=== PATIENT | male | born 1950 | race Caucasian/White ===

== ENCOUNTER 2017-05-17 12:02 | Outpatient (CLI) | payer MEDICARE | END 2017-05-17 12:03 | disposition home or self-care (01) | LOC: BICMAMMO 12:02 | PROVIDERS: ATTEND Specialist | DX: Z13.820 Encounter for screening for osteoporosis (principal); M25.559 Pain in unspecified hip; M85.80 Other specified disorders of bone density and structure, unspecified site; M81.0 Age-related osteoporosis without current pathological fracture | CPT/HCPCS: 77080 ==

== ENCOUNTER 2018-06-14 09:06 | Outpatient (CLI) | payer MEDICARE ==
--- NOTE | 2018-06-14 13:04 | ULT ---
PREDIALYSIS ACCESS DUPLEX EXAM: INDICATION: Dialysis access planning. TECHNIQUE: Right brachial artery 4.0 mm Right radial artery 2.2 mm Right ulnar artery 2.3 mm RIGHT CEPHALIC VEIN: Proximal humerus 3.3 mm Mid humerus 3.6 mm Distal 3.2 mm Elbow 3.5 mm Proximal forearm 1.9 mm Mid 2.4 mm Distal 2.1 mm RIGHT BASILIC VEIN: Proximal humerus 5.1 mm Mid humerus 3.7 mm Distal 3.7 mm Elbow 2.3 mm Proximal forearm 2.1 mm Mid 2.5 mm Distal 1.6 mm Left brachial artery 5.4 mm Left radial artery 2.3 mm Left ulnar artery 2.8 mm LEFT CEPHALIC VEIN: Proximal humerus 3.3 mm Mid humerus 2.1 mm Distal 2.5 mm Elbow 3.0 mm Proximal forearm 1.9 mm Mid 1.7 mm Distal 2.2 mm LEFT BASILIC VEIN (from upper arm through the wrist) Proximal humerus 3.6 mm Mid humerus 2.9 mm Distal 3.9 mm Elbow 3.3 mm Proximal forearm 2.1 mm Mid 1.3 mm Distal 1.1 mm IMPRESSION: Predialysis duplex exam as above. POS: [facility]
== END 2018-06-14 09:07 | disposition home or self-care (01) ==
LOC: ULT 09:06
PROVIDERS: ATTEND Internal Medicine Nephrology
DX: N18.5 Chronic kidney disease, stage 5 (principal)
CPT/HCPCS: 93970; G0365

== ENCOUNTER 2018-07-20 07:07 | Day surgery (SDC) | payer MEDICARE ==
[2018-07-19 09:03] VITALS: BMI 32.1
[2018-07-20] MEDS ORDERED: Midazolam HCl 2 mg/2 ml Vial ONE (07:51)
[2018-07-20] MEDS ORDERED: Fentanyl 100 MCG/2 ML VIAL ONE ×2 (07:51→08:20)
[2018-07-20 07:53] LABS: #Eosinphils 0.5 thou/uL (0.0-0.7); #Lymphocytes 1.9 thou/uL (1.20-3.40); #Monocytes 1.1 thou/uL (0.11-0.59); #Neutrophils 5.8 thou/uL (1.40-6.50); %Basophils 0.5 % (0.0-1.0); %Lymphocytes 20.3 % (21.0-51.0); %Monocytes 11.7 % (0.0-10.0); %Neutrophils 62.5 % (42.0-75.0); Mean Corpuscular HGB CONC 32.8 g/dL (32.0-36.0); Mean Corpuscular Hemoglobin 30.9 pg (27.0-31.0); Mean Corpuscular Volume 94.2 fL (78.0-98.0); Mean Platelet Volume 9.1 fL (7.4-10.4); Platelet Count 135 thou/uL (130-400); RBC Distribution Width 11.7 % (11.5-14.5); Red Blood Cell (RBC) Count 3.87 mill/uL (4.70-6.10); White Blood Cell (WBC) Count 9.3 thou/uL (4.8-10.8)
[2018-07-20 08:13] LABS: Anion Gap 15 mmol/L (10-20); BUN (Urea Nitrogen) 53 mg/dL (8.4-25.7); Calc. Creatinine Clearance 26 mL/min (70-130); Calcium 9.8 mg/dL (7.8-10.44); Carbon Dioxide 22 mmol/L (23-31); Chloride 107 mmol/L (98-107); Estimated GFR-MDRD 14; Glucose 134 mg/dL (80-115); Potassium 4.5 mmol/L (3.5-5.1); Sodium 139 mmol/L (136-145)
[2018-07-20] MEDS ORDERED: Bupivacaine/Epinephrine 0.25% 30 ML VIAL ONE (08:14)
[2018-07-20] MEDS ORDERED: Heparin 5,000 UNITS/ML VIAL ONE (08:14)
[2018-07-20] MEDS ORDERED: Lidocaine 2% PF 5 ML VIAL ONE (08:14)
[2018-07-20] MEDS ORDERED: Protamine Sulfate 50 MG/5 ML VIAL ONE (08:14)
[2018-07-20] MEDS ORDERED: Propofol 1,000 MG/100 ML VIAL IV ONE (08:20)
[2018-07-20] MEDS ORDERED: Bupivacaine HCl 0.5%/Epinephrine 1:200,000/PF 30 ml Vial ONE (13:58)
[2018-07-20] MEDS ORDERED: Heparin 10,000 UNITS/ 10 ML VIAL ONE (14:21)
[2018-07-20] MEDS ORDERED: PROPOFOL 200 MG/20 ML VIAL ONE (14:21)
--- NOTE | 2018-07-20 15:02 | EKG ---
Test Reason : PREOP Blood Pressure : / mmHG Vent. Rate : 047 BPM Atrial Rate : 047 BPM P-R Int : 160 ms QRS Dur : 134 ms QT Int : 500 ms P-R-T Axes : 023 -43 -10 degrees QTc Int : 442 ms Marked sinus bradycardia Left axis deviation Right bundle branch block Abnormal ECG Confirmed by EMILY BOYD ([id number]) on 07/20/2018 3:02:34 PM Referred By: HYUN Confirmed By:EMILY BOYD
--- NOTE | 2018-07-23 11:23 | OP ---
DATE OF PROCEDURE: 07/20/2018 PROCEDURE: Left [place] arteriovenous fistula creation. PREOPERATIVE DIAGNOSIS: End-stage renal failure. POSTOPERATIVE DIAGNOSIS: End-stage renal failure. HISTORY: Mr. Ro is a 67-year-old man, who requires AV fistula creation for dialysis. Recommendation was made to proceed with left-sided AV fistula creation. FINDINGS: A 3.5-mm cephalic vein at the wrist used for primary fistula creation. PROCEDURE: After informed consent was obtained and appropriate preoperative antibiotics administered, the patient was taken to the operating room and placed in the supine position and monitored anesthesia care was administered. A preoperative block had been performed by Anesthesia and the adequacy of block was confirmed. The arm was prepped and draped in a standard sterile fashion and an incision made between the palpable cephalic vein and radial artery. Dissection was carried out to the cephalic vein, which appeared to be of adequate quality and caliber to support a fistula. This was dissected free circumferentially, ligated, and divided distally, and spatulated with Serrato scissors. This was serially interrogated with cardiac dilators and easily accepted up to a 3.5 mm cardiac dilator. This was flushed with heparinized saline and clamped with a bulldog clamp. The radial artery was then dissected free and found to be of adequate quality and caliber to support a fistula. Heparin was administered systemically and allowed to circulate for 3 minutes following which the radial artery was clamped proximally and distally. An anterior arteriotomy was created with an 11 blade scalpel and extended with Serrato scissors. An end-to-side anastomosis created with a running 6-0 Prolene suture with excellent technical result. Prior to tying down the anastomosis, the inflow was released to flush the anastomosis. Flow was established first through the fistula and then through the distal radial artery. Hemostasis at the site was confirmed, and an excellent thrill was felt in the cephalic vein outflow and an excellent bruit was heard with Doppler as well up to the proximal forearm. Hemostasis at the operative site was again confirmed. The incision was closed with a running 3-0 subcutaneous and running 4-0 subcuticular Monocryl sutures. Dermabond dressings were placed and the patient was taken to the recovery room in good condition. Estimated blood loss was minimal. There were no complications. There were no specimens. Job ID: [id number]
== END 2018-07-20 11:40 | disposition home or self-care (01) ==
LOC: SDC 07:07
PROVIDERS: ATTEND Surgery
PROC: 031C0ZF Bypass Left Radial Artery to Lower Arm Vein, Open Approach (ICD-10-PCS; principal; 2018-07-20)
DX: I12.0 Hypertensive chronic kidney disease with stage 5 chronic kidney disease or end stage renal disease (principal); E11.22 Type 2 diabetes mellitus with diabetic chronic kidney disease; N18.6 End stage renal disease; E78.00 Pure hypercholesterolemia, unspecified; Z87.891 Personal history of nicotine dependence; Z79.899 Other long term (current) drug therapy
CPT/HCPCS: 36415; 80048; 85025; 93005; 93010; J0670; J1644; J2001; J2250; J2704; J2720; J3010

== ENCOUNTER 2019-03-28 15:40 | Emergency (ER) | payer MEDICARE ==
[2019-03-28 16:35] LABS: #Basophils 0.1 thou/uL (0.0-0.2); #Eosinphils 0.6 thou/uL (0.0-0.7); #Lymphocytes 2.5 thou/uL (1.20-3.40); #Monocytes 1.5 thou/uL (0.11-0.59); #Neutrophils 6.2 thou/uL (1.40-6.50); %Basophils 0.6 % (0.0-1.0); %Lymphocytes 22.7 % (21.0-51.0); %Monocytes 13.4 % (0.0-10.0); %Neutrophils 57.3 % (42.0-75.0); Hemoglobin 11.5 g/dL (14.0-18.0); Mean Corpuscular HGB CONC 33.1 g/dL (32.0-36.0); Mean Corpuscular Hemoglobin 31.5 pg (27.0-31.0); Mean Corpuscular Volume 95.1 fL (78.0-98.0); Mean Platelet Volume 9.1 fL (7.4-10.4); Platelet Count 183 thou/uL (130-400); Red Blood Cell (RBC) Count 3.66 mill/uL (4.70-6.10); White Blood Cell (WBC) Count 10.9 thou/uL (4.8-10.8)
[2019-03-28 16:53] LABS: Bilirubin Negative (Negative); Blood, Urine Negative (Negative); Clarity Clear (Clear); Glucose, Urine (Dipstick) Normal (Negative); Leukocyte Negative Leu/uL (Negative); Nitrite Negative (Negative); Protein, Urine (Dipstick) 70 mg/dL (Neg-Trace); Urobilinogen Normal mg/dL (Less than 2)
[2019-03-28 16:54] LABS: Bacteria/HPF None Seen HPF (None Seen); RBC/HPF 0-3 HPF (0-3); Squamous Epithelial 0-3 HPF (0-3); WBC/HPF 0-3 HPF (0-3)
[2019-03-28 16:56] LABS: ALT (SGPT) 8 U/L (8-55); AST (SGOT) 10 U/L (5-34); Albumin 4.2 g/dL (3.4-4.8); Alkaline Phosphatase 48 U/L (40-110); Anion Gap 14 mmol/L (10-20); BUN (Urea Nitrogen) 79 mg/dL (8.4-25.7); Bilirubin, Total 0.4 mg/dL (0.2-1.2); Calc. Creatinine Clearance 0 mL/min (70-130); Calcium 9.7 mg/dL (7.8-10.44); Carbon Dioxide 24 mmol/L (23-31); Chloride 107 mmol/L (98-107); Estimated GFR-MDRD 8; Globulin 3.8 g/dL (2.4-3.5); Glucose 78 mg/dL (80-115); Potassium 4.8 mmol/L (3.5-5.1); Sodium 140 mmol/L (136-145)
[2019-03-28] MEDS ORDERED: Ondansetron PF 4 MG/2 ML Vial ONE (17:26)
[2019-03-28] MEDS ORDERED: Morphine 4 MG/ML VIAL ONE (17:26)
--- NOTE | 2019-03-28 18:06 | CT ---
CT abdomen and pelvis, noncontrast CLINICAL HISTORY: Flank pain No prior comparison FINDINGS: There are scattered volume loss of the lung bases. Prominent left extrarenal pelvis is pres ent. No discrete urinary tract calculi. Cystic-appearing hypodensity is seen at the superior aspect of the right kidney which could relate to a parapelvic cyst or dilated calyx. There is a small parenc hymal hyperdensity of the posterior aspect of the left kidney, too small to further characterize. Prostate calcifications are present. There is scattered atherosclerotic vascular disease and ectasia of the abdominal aorta with mild aneurysmal dilatation of the infrarenal abdominal aorta, 3.5 cm in diameter. There are scattered osseous degenerative changes. Evaluation is otherwise limited on the ba sis of noncontrast technique. IMPRESSION: No urolithiasis or obstructive uropathy. Additional details are described above. Transcribed Date/Time: 03/28/2019 6:18 PM
== END 2019-03-28 19:16 | disposition home or self-care (01) ==
LOC: ERS 15:40
DX: M54.5 Low back pain (principal); E10.9 Type 1 diabetes mellitus without complications; K21.9 Gastro-esophageal reflux disease without esophagitis; E78.5 Hyperlipidemia, unspecified; I10 Essential (primary) hypertension; J44.9 Chronic obstructive pulmonary disease, unspecified; Z79.899 Other long term (current) drug therapy; Z79.84 Long term (current) use of oral hypoglycemic drugs
CPT/HCPCS: 36415; 74176; 80053; 81003; 81015; 83690; 84484; 85025; 93005; 96361; 96374; 96375; J2270; J2405

== ENCOUNTER 2019-06-06 14:00 | Outpatient (CLI) | payer MEDICARE ==
--- NOTE | 2019-06-06 15:11 | RAD ---
TWO VIEWS OF THE CHEST: COMPARISON: 11/13/2015. HISTORY: Chronic kidney disease. FINDINGS: Two views of the chest show a normal-size cardiomediastinal silhouette. There is no evidence of cons olidation, mass, or pleural effusion. The bones are unremarkable. IMPRESSION: No evidence of acute cardiopulmonary disease. POS: CET
== END 2019-06-06 14:01 | disposition home or self-care (01) ==
LOC: BICRAD 14:00
PROVIDERS: ATTEND Internal Medicine Nephrology
DX: N18.5 Chronic kidney disease, stage 5 (principal)
CPT/HCPCS: 71046

== ENCOUNTER 2019-06-20 11:02 | Day surgery (SDC) | payer MEDICARE ==
[2019-06-19 17:58] VITALS: BMI 37.8
[~2019-06-20 11:02] MED LIST: PROPOFOL 200 MG/20 ML VIAL ONE
[2019-06-20 12:26] LABS: #Basophils 0.1 thou/uL (0.0-0.2); #Eosinphils 0.6 thou/uL (0.0-0.7); #Monocytes 1.5 thou/uL (0.11-0.59); #Neutrophils 8.1 thou/uL (1.40-6.50); %Basophils 0.5 % (0.0-1.0); %Eosinophils 4.8 % (0.0-10.0); %Lymphocytes 16.5 % (21.0-51.0); %Neutrophils 66.3 % (42.0-75.0); Hemoglobin 9.8 g/dL (14.0-18.0); Mean Corpuscular HGB CONC 32.3 g/dL (32.0-36.0); Mean Corpuscular Hemoglobin 31.2 pg (27.0-31.0); Mean Corpuscular Volume 96.6 fL (78.0-98.0); Mean Platelet Volume 9.5 fL (7.4-10.4); Platelet Count 168 thou/uL (130-400); Red Blood Cell (RBC) Count 3.13 mill/uL (4.70-6.10); White Blood Cell (WBC) Count 12.3 thou/uL (4.8-10.8)
[2019-06-20 12:48] LABS: Anion Gap 13 mmol/L (10-20); BUN (Urea Nitrogen) 64 mg/dL (8.4-25.7); Calc. Creatinine Clearance 19 mL/min (70-130); Calcium 9.3 mg/dL (7.8-10.44); Carbon Dioxide 23 mmol/L (23-31); Chloride 107 mmol/L (98-107); Estimated GFR-MDRD 9; Glucose 93 mg/dL (80-115); Potassium 5.4 mmol/L (3.5-5.1); Sodium 138 mmol/L (136-145)
[2019-06-20] MEDS ORDERED: Sodium Chloride 0.9% 20 ML ONE (12:56)
[2019-06-20] MEDS ORDERED: Lidocaine 2% w/Epinephrine 1:200K 20 ML VIAL ONE (12:56)
[2019-06-20] MEDS ORDERED: Heparin 10,000 UNITS/1 ML VIAL ONE (12:56)
[2019-06-20] MEDS ORDERED: Bupivacaine 0.25% HCL 30 ML VIAL ONE (12:56)
[2019-06-20] MEDS ORDERED: Midazolam HCl 2 mg/2 ml Vial ONE (13:15)
[2019-06-20] MEDS ORDERED: Meperidine HCl/PF 25 MG/ML VIAL ONE (13:15)
[2019-06-20] MEDS ORDERED: PROPOFOL 20 ML ONE (13:16)
--- NOTE | 2019-06-20 15:44 | RAD ---
SINGLE VIEW OF THE CHEST: 06/20/19 COMPARISON: 06/06/19. HISTORY: Dialysis catheter placement. FINDINGS: Single view of the chest shows a cardiomediastinal silhouette which is upper limits of normal in size . There is a right IJ dialysis catheter with its tip in the superior vena cava. No pneumothorax is se en. There is no evidence of consolidation, mass or pleural effusion. IMPRESSION: No evidence of acute cardiopulmonary disease. POS: CET
--- NOTE | 2019-06-20 16:08 | PDOC.OP ---
Operative Note - Operative Note Operative Note: DATE OF PROCEDURE: 06/20/2019 PROCEDURE: Placement of tunneled hemodialysis catheter. SURGEON: Cherelle Avilez M.D. PREOPERATIVE DIAGNOSIS: End-stage renal failure. POSTOPERATIVE DIAGNOSIS: End-stage renal failure. HISTORY: Patient with end-stage renal failure who is fistula has infiltrated several times. A tunneled hemodialysis catheter for initiation of dialysis has been requested by the patients social media assistant. PROCEDURE: After informed consent was obtained and appropriate preoperative antibiotics were administered, the patient was taken to the Operating Room, placed in the supine position and monitored anesthesia care was administered. The neck and chest were prepped and draped in a standard sterile fashion and the patient placed in Trendelenburg position. A sterile ultrasound probe was used to identify the patent compressible right IJ vein which was accessed under direct ultrasound guidance. A wire was threaded through the needle and confirmed by ultrasound to be within the patent compressible vessel with the tip in the vena cava by fluoroscopy. Local anesthesia was infused to the skin and subcutaneous tissues of the right neck and chest. An infraclavicular incision was made and a catheter tunneled from the infraclavicular to the right IJ access site. The right IJ was sequentially dilated over the wire following which a dilator and sheath were placed over the wire and the dilator and wire removed leaving the sheath in place. The catheter was tunneled through the sheath which was then split and removed leaving the catheter in place. This was confirmed by fluoroscopy to be in good position in the superior vena cava with no kinking of the course of the catheter. Both ports easily aspirated dark venous nonpulsatile blood and easily flushed without resistance. Heparin was instilled to the quantity specified on the hub, and the hub was secured to the skin with 3-0 nylon sutures. The skin incision at the neck was closed in two layers with 4-0 Monocryl suture and Dermabond dressings were placed. The skin at the exit site was snugged up around the catheter with 4-0 Monocryl suture and Dermabond was placed there as well. Once the Dermabond was dry, a Biopatch and Tegaderm dressing was placed at the exit site. The patient was taken to Recovery in good condition. Estimated blood loss was minimal. There were no complications. There were no specimens.
== END 2019-06-20 15:50 | disposition home or self-care (01) ==
LOC: SDC 11:02
PROVIDERS: ATTEND Surgery
PROC: 0JH63XZ Insertion of Tunneled Vascular Access Device into Chest Subcutaneous Tissue and Fascia, Percutaneous Approach (ICD-10-PCS; principal; 2019-06-20)
PROC: 02HV33Z Insertion of Infusion Device into Superior Vena Cava, Percutaneous Approach (ICD-10-PCS; 2019-06-20)
PROC: B548ZZA Ultrasonography of Superior Vena Cava, Guidance (ICD-10-PCS; 2019-06-20)
PROC: B518ZZA Fluoroscopy of Superior Vena Cava, Guidance (ICD-10-PCS; 2019-06-20)
DX: I12.0 Hypertensive chronic kidney disease with stage 5 chronic kidney disease or end stage renal disease (principal); N18.6 End stage renal disease; E11.22 Type 2 diabetes mellitus with diabetic chronic kidney disease; E78.00 Pure hypercholesterolemia, unspecified; Z79.84 Long term (current) use of oral hypoglycemic drugs; Z79.899 Other long term (current) drug therapy; Z99.2 Dependence on renal dialysis
CPT/HCPCS: 36561; 71045; 80048; 85025; C1752; C1769; J0690; J1644; J2175; J2250; J2704; S0020

== ENCOUNTER 2023-03-14 05:56 | Day surgery (SDC) | payer OTHER ==
[2023-03-13 15:09] VITALS: BMI 38.0
[~2023-03-14 05:56] MED LIST changes: +EPINEPHrine 0.3 MG in Ophthalmic Irrigation Solution 500 ML IRR SCH; -PROPOFOL 200 MG/20 ML VIAL ONE
[2023-03-14] MEDS ORDERED: Cyclopentolate W/ Phenylephrin 5 ML BOT ONE (06:15)
[2023-03-14] MEDS ORDERED: Cyclopentolate 1% Opth Drop 2 ML BOT ONE (06:46)
[2023-03-14] MEDS ORDERED: Famotidine/PF 20 mg/2ml Vial ONE (07:48)
[2023-03-14] MEDS ORDERED: Midazolam HCl 2 mg/2 ml Vial ONE (08:39)
[2023-03-14] MEDS ORDERED: KETAMINE 100 MG/ML (5ML VIAL) ONE (08:39)
== END 2023-03-14 10:10 | disposition home or self-care (01) ==
LOC: SDC 05:56
PROVIDERS: ATTEND Ophthalmology Retina Specialist
PROC: 08T43ZZ Resection of Right Vitreous, Percutaneous Approach (ICD-10-PCS; principal; 2023-03-14)
DX: H33.001 Unspecified retinal detachment with retinal break, right eye (principal)
CPT/HCPCS: 67025; J0171; J2250; S0028